=== PATIENT | female | born 1955 | race Caucasian/White ===

== ENCOUNTER → 2024-02-06 09:09 | Outpatient (REF) | payer MEDICARE, SELFPAY | LOC: WDC 09:09 | PROVIDERS: ATTENDING PHYSICIAN Physician Assistant Medical | DX: R92.2 Inconclusive mammogram (principal); R92.30 Dense breasts, unspecified | CPT/HCPCS: 76641 ==

== ENCOUNTER → 2024-09-21 09:53 | Outpatient (REF) | payer MEDICARE, SELFPAY | LOC: WDC 09:53 | PROVIDERS: ATTENDING PHYSICIAN Physician Assistant Medical | DX: Z12.31 Encounter for screening mammogram for malignant neoplasm of breast (principal); M85.80 Other specified disorders of bone density and structure, unspecified site; Z78.0 Asymptomatic menopausal state; M81.0 Age-related osteoporosis without current pathological fracture | CPT/HCPCS: 77063; 77067; 77080 ==

== ENCOUNTER → 2025-05-23 08:55 | Outpatient (REF) | payer MEDICARE, SELFPAY | LOC: WDC 08:55 | PROVIDERS: ATTENDING PHYSICIAN Physician Assistant Medical | DX: R92.30 Dense breasts, unspecified (principal) | CPT/HCPCS: 76641 ==